=== PATIENT | female | born 1955 | race Caucasian/White ===

== ENCOUNTER → 2021-07-09 | Outpatient (CLI) | payer OTHER ==
[2021-07-12 11:10] LABS: M-SPIKE, % Not Observed % (Not Observed); PROTEIN,TOTAL,URINE <4.0 mg/dL (Not Estab.)
== END | disposition home or self-care (01) ==
LOC: LAB SHORT 14:29 → LAB 14:29 → LAB FUT 07-05 14:25
PROVIDERS: Internal Medicine
DX: R79.89 Other specified abnormal findings of blood chemistry (principal)
CPT/HCPCS: 81050; 84166; 86335